=== PATIENT | female | born 1940 | race Caucasian/White ===

== ENCOUNTER 2019-08-29 08:05 | Emergency (ER) | payer MEDICARE, BC ==
[2019-08-29 08:27] VITALS: BP 153/58
--- NOTE | 2019-08-29 08:41 | UC ---
Ear Complaint HPI - HPI Summary HPI Summary: 79-year-old female who complains of left ear pain and her ear being plugged. She's had minor head congestion for about one week. She states she started having a nonproductive cough this morning. She denies any fever or chills. - History of Current Complaint Chief Complaint: UCEar Stated Complaint: EARPAIN/COUGH Time Seen by Provider: 08/29/19 08:16 Hx Obtained From: Patient ?: No Onset/Duration: Gradual Onset Severity Initially: Mild Severity Currently: Moderate Pain Intensity: 7 Aggravating Factors: Nothing Alleviating Factors: Nothing Associated Signs/Symptoms: Positive: URI Symptoms - Allergies/Home Medications Allergies/Adverse Reactions: Allergies Allergy/AdvReac Type Severity Reaction Status Date / Time Nuts Allergy Unknown Nausea Uncoded 08/29/19 08:19 [place] Allergy Unknown Difficulty Uncoded 08/29/19 08:19 Breathing Home Medications: Home Medications Guaifen/Phenyleph/Acetaminophn [Tylenol Cold Head Congest Cplt] 1 each PO Q4H PRN 08/29/19 [History Confirmed 08/29/19] PMH/Surg Hx/FS Hx/Imm Hx Previously Healthy: Yes - Surgical History Surgical History: None - Family History Known Family History: Positive: Cardiac Disease - Social History Occupation: Retired Alcohol Use: Occasionally Substance Use Type: None Smoking Status (MU): Never Smoked Tobacco Review of Systems All Other Systems Reviewed And Are Negative: Yes ENT: Positive: Ear Ache, Nasal Discharge Respiratory: Positive: Cough - Dry nonproductive cough which started this morning. Is Patient Immunocompromised?: No Physical Exam Triage Information Reviewed: Yes Appearance: Well-Appearing, No Pain Distress, Well-Nourished Vital Signs: Initial Vital Signs Temp 98 F 08/29/19 08:22 Pulse 118 08/29/19 08:22 Resp 16 08/29/19 08:22 BP 153/58 08/29/19 08:22 Pulse Ox 97 08/29/19 08:22 Vital Signs Reviewed: Yes Eyes: Positive: Conjunctiva Clear ENT: Positive: Pharynx normal, Nasal drainage - Clear nasal coryza, TM red - I am unable to visualize right tympanic membrane because of dry cerumen in ear canal, the left tympanic membrane is erythematous and bulging, Uvula midline Neck: Positive: Supple, Nontender, No Lymphadenopathy Respiratory: Positive: Lungs clear, Normal breath sounds, No respiratory distress, No accessory muscle use Cardiovascular: Positive: No Murmur, Pulses Normal, Brisk Capillary Refill, Tachycardia Musculoskeletal Exam: Normal Neurological Exam: Normal Psychological Exam: Normal Skin Exam: Normal Ear Complaint Course/Dx - Course Course Of Treatment: The patient is comfortable here. She does not have a history of ear infections. Of going to treated with Augmentin 875 mg by mouth twice a day 10 days. Definite follow-up with an ear nose and throat physician in 2 or 3 days if no improvement. - Differential Dx/Diagnosis Provider Diagnosis: Left otitis media Discharge ED - Sign-Out/Discharge Documenting (check all that apply): Patient Departure All imaging exams completed and their final reports reviewed: No Studies - Discharge Plan Condition: Fair Disposition: HOME Prescriptions: Amoxicillin/Clavulanate TAB* [Augmentin TAB 875*] 875 mg PO BID 10 Days #20 tab Patient Education Materials: Ear Infection (ED) Referrals: Damien Jay MD [Medical Doctor] - Chai Gallegos MD [Medical Doctor] - Malcom Crum MD [Primary Care Provider] - Additional Instructions: Take the Augmentin with food. May alternate Tylenol every 4 hours with ibuprofen every 8 hours. Follow-up with an ear nose and throat physician such as Dr. Jay in [place] or Dr. Gallegos in [place] in 2 or 3 days if no improvement or if worsening symptoms. - Billing Disposition and Condition Condition: FAIR Disposition: Home
== END 2019-08-29 09:00 | disposition home or self-care (01) ==
LOC: UCCORT 08:05
DX: H66.92 Otitis media, unspecified, left ear (principal); Z91.018 Allergy to other foods
CPT/HCPCS: 99212; G0463